=== PATIENT | male | born 1955 | race Caucasian/White ===

== ENCOUNTER 2022-05-06 14:17 | Outpatient (REF) | payer OTHER, SELFPAY ==
[2022-05-06 16:52] LABS: Hematocrit 45.4 % (42.0-52.0); Hemoglobin 15.7 g/dl (14.0-18.0); Mean Corpuscular HGB Conc 34.6 g/dl (31.0-36.0); Mean Corpuscular Hemoglobin 31.7 pg (27.0-33.0); Mean Corpuscular Volume 91.5 fL (80.0-98.0); Mean Platelet Volume 10.5 fL (9.4-12.4); Platelet Count 264 X10*3/uL (160-400); Red Blood Count 4.96 X10*6/uL (4.60-5.80); Red Cell Distribution Width 12.7 % (11.0-16.0); White Blood Count 7.6 X10*3/uL (4.8-10.8)
[2022-05-06 17:07] LABS: Alanine Aminotransferase 35 U/L (0-40); Albumin Level 4.6 g/dL (3.5-5.0); Alkaline Phosphatase 95 U/L (39-117); Anion Gap 15 (12-20); Aspartate Amino Transferase 27 U/L (5-37); Bilirubin Total 1.9 mg/dL (0.0-1.0); Blood Urea Nitrogen 17 mg/dL (9-16); Calcium 9.7 mg/dL (8.4-10.2); Carbon Dioxide 25 mmol/L (22-29); Chloride 106 mmol/L (96-108); Cholesterol 211 mg/dL; Estimated Glomerular Filt Rate > 60; Glucose Random 91 mg/dL (60-115); HDL Cholesterol 51 mg/dL; LDL Cholesterol Calculated 142 mg/dl; Potassium 4.6 mmol/L (3.3-5.1); Sodium 141 mmol/L (135-145); Total Protein 7.5 g/dL (6.5-8.0); Triglycerides 90 mg/dL
[2022-05-06 17:27] LABS: Prostate Specific Antigen 2.61 ng/mL (<0.05-4.0)
[2022-05-09 08:06] LABS: ~HepC Num1 0.13 S/CO (0.00-0.79); ~Hepatitis C Antibody Nonreactive (Nonreactive)
== END 2022-05-06 14:18 | disposition home or self-care (01) ==
LOC: HO.HMGCLDS 14:17
PROVIDERS: PCP Internal Medicine; Visit Provider Internal Medicine
DX: Z00.00 Encounter for general adult medical examination without abnormal findings (principal); R97.20 Elevated prostate specific antigen [PSA]; E78.00 Pure hypercholesterolemia, unspecified; R73.09 Other abnormal glucose; Z12.5 Encounter for screening for malignant neoplasm of prostate
CPT/HCPCS: 36415; 80053; 80061; 84153; 85027; 86803

== ENCOUNTER 2022-08-06 09:40 | Outpatient (REF) | payer OTHER, SELFPAY ==
[2022-08-06 11:29] LABS: Alanine Aminotransferase 51 U/L (0-40); Albumin Level 4.5 g/dL (3.5-5.0); Alkaline Phosphatase 86 U/L (39-117); Anion Gap 14 (12-20); Aspartate Amino Transferase 36 U/L (5-37); Bilirubin Total 1.9 mg/dL (0.0-1.0); Blood Urea Nitrogen 15 mg/dL (9-16); Calcium 9.4 mg/dL (8.4-10.2); Carbon Dioxide 27 mmol/L (22-29); Chloride 104 mmol/L (96-108); Cholesterol 112 mg/dL; Estimated Glomerular Filt Rate > 60; Glucose Random 94 mg/dL (60-115); HDL Cholesterol 47 mg/dL; LDL Cholesterol Calculated 51 mg/dl; Potassium 4.2 mmol/L (3.3-5.1); Sodium 141 mmol/L (135-145); Total Protein 7.2 g/dL (6.5-8.0); Triglycerides 71 mg/dL
== END 2022-08-06 09:41 | disposition home or self-care (01) ==
LOC: HO.HMGCLDS 09:40
PROVIDERS: PCP Internal Medicine; Visit Provider Internal Medicine
DX: E78.00 Pure hypercholesterolemia, unspecified (principal)
CPT/HCPCS: 36415; 80053; 80061; 82550

== ENCOUNTER 2022-08-10 08:09 | Emergency (ER) | payer OTHER, SELFPAY ==
--- NOTE | ~2022-08-10 | XR_ITS ---
EXAMINATION: XR ANKLE, LEFT CLINICAL INFORMATION: Pain and swelling status post fall off of ladder. COMPARISON: None TECHNIQUE: AP, lateral, and mortise views of the left ankle. FINDINGS: There is an acute fracture of the medial malleolus with mild medial displacement of the distal fragment. The lateral malleolus appears intact. The tibiotalar joint space is unremarkable. The tarsal bones are normally aligned. There is a very small retrocalcaneal spur. Mild to moderate surrounding soft tissue swelling. XR/XR ankle LT min 3V IMPRESSION: 1. Acute, mildly displaced medial malleoli fracture with mild to moderate swelling.
--- NOTE | ~2022-08-10 | XR_ITS ---
EXAMINATION: XR FOOT, LEFT CLINICAL INFORMATION: Left foot pain status post fall off of ladder. COMPARISON: None TECHNIQUE: AP, lateral, and oblique views of the left foot. FINDINGS: The bones and soft tissues are normal. No fracture. Alignment is anatomic. Joint spaces are maintained. XR/XR foot LT 2V IMPRESSION: No acute abnormality in the left foot. Please refer to the report from the left ankle radiographs from today for additional findings.
[2022-08-10 08:13] VITALS: BP 129/78; PULSE 68; RESP 16; TEMP 36.8; O2SAT 96; BMI 27.7
--- NOTE | 2022-08-10 08:39 | ED_ITS ---
HPI - Extremity Injury (Lower) General Chief Complaint: Extremity Injury, Lower Stated Complaint: L leg and ankle pain Time Seen by Provider: 08/10/22 08:24 Source: patient Mode of arrival: ambulatory Limitations: no limitations History of Present Illness HPI Narrative: 67 yo male with hx of HLD was on a ladder - about two rungs high fell and landed straight down on left leg. No other injuries no head strike no back pain, pain is isolated to the left ankle and foot MD complaint: ankle injury and foot injury Onset (ago): day(s) (1) Type of Injury: blunt Place: home Severity: moderate Relieving factors: immobilization Exacerbating factors: weight bearing, movement and palpation Context: fall Associated symptoms: swelling and able to partially bear weight Other symptoms: none Related Data Allergies Allergy/AdvReac Type Severity Reaction Status Date / Time No Known Allergies Allergy Verified 08/10/22 08:12 Review of Systems Review of Systems: Constitutional : No Fever, No Chills ENT/Mouth : No Ear Pain, No Hoarseness, No sore throat Eyes: No Eye Pain, No Swelling, No Redness, No Foreign Body Cardiovascular : No Chest Pain, No SOB Respiratory : No Cough, No Dyspnea Gastrointestinal : No Nausea, No Vomiting, No Diarrhea, No abdominal Pain Genitourinary : No Dysuria, No Hematuria Musculoskeletal : positive joint pain, No Myalgias, pos Joint Swelling Skin : No Skin lacerations, No rash Neuro : No Weakness, No Numbness, No Loss of Consciousness, No Dizziness, No Headache PMFSH Past Medical History Attestation statement: The following information was validated with the patient. Medical History (Updated 08/10/22 @ 08:54 by Heather Juan DO) Hyperlipidemia Social History Social History (Updated 08/10/22 @ 08:49 by Heather Juan DO) Patient Tobacco Use Status: Never used Tobacco Advance Directives: No Advance Directives Information Provided: Yes Physical Exam Vital Signs: Vital Signs: Last Vital Signs Temp 98.2 F 08/10/22 08:13 Pulse 68 08/10/22 08:13 Resp 16 08/10/22 08:13 BP 129/78 08/10/22 08:13 Pulse Ox 96 08/10/22 08:13 O2 Del Method 08/10/22 08:13 BMI result Body Mass Index 27.7 Appearance: Alert. Oriented X3. No acute distress. Eyes: Pupils equal, round and reactive to light. ENT: Pharynx normal. Neck: Normal inspection. Neck supple. CVS: Normal heart rate and rhythm. Pulses normal. Respiratory: No respiratory distress. Breath sounds normal. Abdomen: Soft and nontender. Skin: Skin warm and dry. Normal skin color. Normal skin turgor. Extremities: L ankle moderate swelling around both malleoli - pulses and sensation intact, no prox fibula ttp Neuro: Oriented X 3. No motor deficit. No sensory deficit. Course Course Course Narrative: declined medications for home MDM - Extremity Injury (Lower) MDM Narrative Medical decision making narrative: 67 yo male with HLD s/p fall yesterday isolated injury to L ankle/foot at this time will obtain xrays. He is NV intact. no back pain. Dispo per results and xray findings. Suspect strain vs fracture Procedures Orthopedic Splinting/Casting Injury #1: Side: left Lower Extremity Injury Location: ankle Lower Extremity Immobilizer: posterior splint and stirrup splint Other Orthopedic Equipment: crutches Discharge Plan Discharge Clinical Impression: Ankle fracture Qualifiers: Encounter type: initial encounter Fracture type: closed Laterality: left Qualified Code(s): S82.892A - Other fracture of left lower leg, initial encounter for closed fracture Patient Disposition: Home, Self-Care Instructions: Ankle Fracture (ED), Crutch Instructions (ED), Splint Care (ED) Additional Instructions: return to ED for any worsening symptoms or concerns rest elevate FINDINGS: There is an acute fracture of the medial malleolus with mild medial displacement of the distal fragment. The lateral malleolus appears intact. The tibiotalar joint space is unremarkable. The tarsal bones are normally aligned. There is a very small retrocalcaneal spur. Mild to moderate surrounding soft tissue swelling. XR/XR ankle LT min 3V IMPRESSION: ? 1. Acute, mildly displaced medial malleoli fracture with mild to moderate swelling. Referrals: Tien Mahan PA-C [Physician Customer Solutions Coordinator] - 1 week Stand Alone Forms: Work/School Release Interventions: ED Discharge Assessment Last Done: 08/10/22 09:59 Discharge Date/Time: 08/10/22 10:00
== END 2022-08-10 10:00 | disposition home or self-care (01) ==
PROVIDERS: Emergency Provider Emergency Medicine; PCP Internal Medicine
DX: S82.892A Other fracture of left lower leg, initial encounter for closed fracture (principal); W11.XXXA Fall on and from ladder, initial encounter; Y93.9 Activity, unspecified; Y92.9 Unspecified place or not applicable; Y99.9 Unspecified external cause status
CPT/HCPCS: 29515; 73610; 73620; 99282; 99284

== ENCOUNTER 2022-08-16 07:40 | Outpatient (REF) | payer OTHER, SELFPAY ==
--- NOTE | ~2022-08-16 | XR_ITS ---
EXAMINATION: XR ANKLE, LEFT CLINICAL INFORMATION: Fracture medial malleolus. Follow-up. COMPARISON: Radiographs left ankle 08/10/2022 TECHNIQUE: AP, lateral, and mortise views of the left ankle. FINDINGS: There is overlying fiberglass splint. Medial malleoli fracture alignment is similar to the prior exam 08/10/2022. Distal fracture fragment is slightly medially displaced. No acute fracture or dislocation or destructive process. XR/XR ankle LT min 3V IMPRESSION: Medial malleoli fracture without significant change in alignment. Status post fiberglass splint.
== END 2022-08-16 07:41 | disposition home or self-care (01) ==
LOC: HO.HOSX 07:40
PROVIDERS: Visit Provider Physician Assistant
DX: S82.52XA Displaced fracture of medial malleolus of left tibia, initial encounter for closed fracture (principal)
CPT/HCPCS: 29405; 73610

== ENCOUNTER 2022-09-13 | Outpatient (REF) | payer OTHER, SELFPAY ==
--- NOTE | ~2022-09-13 | XR_ITS ---
EXAMINATION: XR ANKLE, LEFT CLINICAL INFORMATION: Fracture COMPARISON: Previous x-ray from July 2022 TECHNIQUE: AP, lateral, and mortise views of the left ankle. FINDINGS: There is a displaced fracture of the medial malleolus. Alignment appears unchanged. Fracture line is still seen. The ankle mortise is normal. There is an ankle joint effusion. There is a small calcaneal spur at the Achilles tendon insertion. XR/XR ankle LT min 3V IMPRESSION: No change in displaced medial malleolar fracture.
== END 2022-09-13 00:01 | disposition home or self-care (01) ==
LOC: HO.HOSX
PROVIDERS: Visit Provider Physician Assistant
DX: S82.52XD Displaced fracture of medial malleolus of left tibia, subsequent encounter for closed fracture with routine healing (principal); W11.XXXD Fall on and from ladder, subsequent encounter
CPT/HCPCS: 29405; 73610

== ENCOUNTER 2022-10-11 | Outpatient (REF) | payer OTHER, SELFPAY ==
--- NOTE | ~2022-10-11 | XR_ITS ---
EXAMINATION: XR ANKLE, LEFT CLINICAL INFORMATION: Pain. COMPARISON: Prior radiographs, most recently 09/13/2022. TECHNIQUE: AP, lateral, and mortise views of the left ankle. FINDINGS: Bony mineralization is normal. There is interim bony union of the previously noted left medial malleolus fracture. The ankle mortise is intact. Boehler's angle is normal. There is no left ankle joint effusion. A tiny posterior calcaneal spur is seen. No focal soft tissue swelling, gas or foreign body is seen. XR/XR ankle LT min 3V IMPRESSION: 1. There is interim healing and bony remodeling of the previously noted left medial malleolus fracture. 2. There is a tiny posterior calcaneal spur
== END 2022-10-11 00:01 | disposition home or self-care (01) ==
LOC: HO.HOSX
PROVIDERS: Visit Provider Physician Assistant
DX: M25.572 Pain in left ankle and joints of left foot (principal)
CPT/HCPCS: 73610

== ENCOUNTER 2022-11-11 | Outpatient (REF) | payer OTHER, SELFPAY ==
--- NOTE | ~2022-11-11 | XR_ITS ---
EXAMINATION: XR ANKLE, LEFT CLINICAL INFORMATION: Pain. COMPARISON: Radiograph of the left ankle 10/11/2022. TECHNIQUE: AP, lateral, and mortise views of the left ankle. FINDINGS: Stable appearance of the medial malleolar fracture with osseous bridging when compared to initial studies from July 2022. Unchanged mild radiolucency of the trabeculations in the posterior tibial malleolus on the lateral view, indeterminate finding. Similar degree of mild multifocal osteoarthritis. Stable small calcifications at the insertion site of the Achilles tendon. Similar degree of diffuse soft tissue swelling. XR/XR ankle LT min 3V IMPRESSION: 1. Stable appearance of the medial malleolar fracture. 2. Unchanged mild radiolucency of the trabeculations in the posterior tibial malleolus on the lateral view, nonspecific finding. Correlate for point tenderness.
== END 2022-11-11 00:01 | disposition home or self-care (01) ==
LOC: HO.HOSX
PROVIDERS: Visit Provider Physician Assistant
DX: M25.572 Pain in left ankle and joints of left foot (principal)
CPT/HCPCS: 73610

== ENCOUNTER 2023-05-08 11:08 | Outpatient (REF) | payer OTHER, SELFPAY ==
[2023-05-08 14:19] LABS: Alanine Aminotransferase 36 U/L (0-40); Albumin Level 4.4 g/dL (3.5-5.0); Alkaline Phosphatase 82 U/L (39-117); Anion Gap 10 (12-20); Aspartate Amino Transferase 27 U/L (5-37); Bilirubin Total 1.9 mg/dL (0.0-1.0); Blood Urea Nitrogen 16 mg/dL (9-16); Calcium 9.6 mg/dL (8.4-10.2); Carbon Dioxide 27 mmol/L (22-29); Chloride 108 mmol/L (96-108); Cholesterol 120 mg/dL; Estimated Glomerular Filt Rate > 60; Glucose Random 87 mg/dL (60-115); HDL Cholesterol 49 mg/dL; LDL Cholesterol Calculated 51 mg/dl; Potassium 4.2 mmol/L (3.3-5.1); Sodium 141 mmol/L (135-145); Total Protein 7.5 g/dL (6.5-8.0); Triglycerides 101 mg/dL
== END 2023-05-08 11:09 | disposition home or self-care (01) ==
LOC: HO.HMGCLDS 11:08
PROVIDERS: PCP Internal Medicine; Visit Provider Nurse Practitioner Adult Health
DX: E78.00 Pure hypercholesterolemia, unspecified (principal)
CPT/HCPCS: 36415; 80053; 80061

== ENCOUNTER 2023-05-27 10:58 | Outpatient (REF) | payer OTHER, SELFPAY | END 2023-05-27 10:59 | disposition home or self-care (01) | LOC: HO.HMGCLDS 10:58 | PROVIDERS: Visit Provider Internal Medicine | DX: N40.0 Benign prostatic hyperplasia without lower urinary tract symptoms (principal); Z12.5 Encounter for screening for malignant neoplasm of prostate | CPT/HCPCS: 36415; 84153 ==

== ENCOUNTER 2024-05-31 10:45 | Outpatient (REF) | payer OTHER, SELFPAY ==
[2024-05-31 13:19] LABS: MANUAL DIFF FLAG NO
[2024-05-31 13:38] LABS: Alanine Aminotransferase 38 U/L (0-40); Albumin Level 4.4 g/dL (3.5-5.0); Alkaline Phosphatase 88 U/L (39-117); Anion Gap 12 (12-20); Aspartate Amino Transferase 30 U/L (5-37); Bilirubin Total 2.3 mg/dL (0.0-1.0); Blood Urea Nitrogen 15 mg/dL (9-16); Calcium 9.5 mg/dL (8.4-10.2); Carbon Dioxide 27 mmol/L (22-29); Chloride 107 mmol/L (96-108); Cholesterol 121 mg/dL (<200); Estimated Glomerular Filt Rate > 60; Glucose Random 107 mg/dL (60-115); HDL Cholesterol 56 mg/dL (>40); LDL Cholesterol Calculated 43 mg/dL (<100); Potassium 3.9 mmol/L (3.3-5.1); Sodium 142 mmol/L (135-145); Total Protein 7.5 g/dL (6.5-8.0); Triglycerides 110 mg/dL (<150)
[2024-05-31 13:45] LABS: Basophils Percent Auto 0.5 % (0-2); Eosinophils Absolute Auto 0.2 X10*3/uL (0.0-0.4); Eosinophils Percent Auto 2.1 % (0-4); Hematocrit 45.2 % (42.0-52.0); Hemoglobin 15.6 g/dl (14.0-18.0); Imm Gran Abs Auto 0.02 X10*3/uL (0.00-0.03); Imm Gran Pct Auto 0.2 % (0.0-0.4); Lymphocytes Absolute Auto 3.2 X10*3/uL (1.2-4.9); Lymphocytes Percent Auto 39.5 % (20-40); Mean Corpuscular HGB Conc 34.5 g/dl (31.0-36.0); Mean Corpuscular Hemoglobin 31.7 pg (27.0-33.0); Mean Corpuscular Volume 91.9 fL (80.0-98.0); Mean Platelet Volume 10.4 fL (9.4-12.4); Monocytes Absolute Auto 0.5 X10*3/uL (0.1-1.2); Monocytes Percent Auto 6.4 % (2-11); Neutrophils Absolute Auto 4.2 x10*3/uL (2.0-8.3); Neutrophils Percent Auto 51.3 % (45-73); Platelet Count 273 X10*3/uL (160-400); Red Blood Count 4.92 X10*6/uL (4.60-5.80); Red Cell Distribution Width 13.3 % (11.0-16.0); White Blood Count 8.2 X10*3/uL (4.8-10.8)
[2024-05-31 13:57] LABS: Prostate Specific Antigen 2.73 ng/mL (<0.05-4.0)
== END 2024-05-31 10:46 | disposition home or self-care (01) ==
LOC: HO.HMGCLDS 10:45
PROVIDERS: PCP Internal Medicine; Visit Provider Internal Medicine
DX: Z00.00 Encounter for general adult medical examination without abnormal findings (principal); N40.0 Benign prostatic hyperplasia without lower urinary tract symptoms; Z12.5 Encounter for screening for malignant neoplasm of prostate
CPT/HCPCS: 36415; 80053; 80061; 84153; 85025

== ENCOUNTER 2024-06-22 09:58 | Outpatient (REF) | payer OTHER, SELFPAY ==
[2024-06-22 11:43] LABS: Anion Gap 13 (12-20); Blood Urea Nitrogen 14 mg/dL (9-16); Calcium 9.6 mg/dL (8.4-10.2); Carbon Dioxide 23 mmol/L (22-29); Chloride 108 mmol/L (96-108); Estimated Glomerular Filt Rate > 60; Glucose Random 94 mg/dL (60-115); Sodium 140 mmol/L (135-145)
== END 2024-06-22 09:59 | disposition home or self-care (01) ==
LOC: HO.HMGCLDS 09:58
PROVIDERS: PCP Internal Medicine; Visit Provider Internal Medicine
DX: I10 Essential (primary) hypertension (principal)
CPT/HCPCS: 36415; 80048

== ENCOUNTER 2025-01-16 12:50 | Outpatient (AMB) | payer OTHER, SELFPAY ==
[2025-01-16 13:05] VITALS: BP 140/76; PULSE 79; O2SAT 96
--- NOTE | 2025-01-16 13:05 | MHC.OFFWIV ---
Intake Vital Signs 01/16/25 13:05 Weight 129 lb BP 140/76 H Blood Pressure Location Lt brachial Position Sitting Pulse 79 Pulse Source Pulse Oximeter Pulse Oximetry (%) 96 Oxygen Delivery Method Room Air Intake Visit Reasons: EP a boil on back area Intake Note: Patient here for a boil that was present for about 1 week and it popped monday. Patient Tobacco Use Status: Never used Tobacco Allergies No Known Allergies Allergy (Verified 01/16/25 13:12) Do you need a note to return to daycare/school/sports/work: No HPI HPI Comments History of Present Illness Details History of Present Illness - The patient is a 69-year-old male presenting with a boil on his back. - The boil ruptured four days ago, releasing fluid, and has since hardened with no further drainage or pain. - The size of the boil is approximately 2 cm x 1 cm, and the patient recalled a previous similar condition with surgical intervention. - Denies any history of MRSA infections. Physical Exam General: Cooperative, healthy appearing, comfortable, no acute distress and well developed Orientation: Patient oriented x3 Limitations: No limitations Head: Normal to inspection Ears: Hearing grossly normal bilaterally Nose: Normal external nose present Face and sinus: Normal facial exam Eyes: Appearance normal, both eyes and all related structures Neck: Normal visual inspection and Yes full ROM Respiratory: Normal respiratory effort and able to speak in complete sentences. Clear to auscultation bilaterally Cardiovascular: Regular rate and rhythm. Normal S1 and S2 Skin: No rashes or lesions noted, mid-low center of back indurated area, crusted center with surrounding erythema 2 cm x 1 cm, with erythema, no warmth noted. 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 This course should mitigate the infection, but if the boil does not resolve, further evaluation and possibly a second antibiotic may be required. However, he has no MRSA history so I will not RX it today. The prescription is sent to [facility]. Follow-up with primary care provider Dr. Hayden is advised if the condition requires further dermatological evaluation. Patient was informed and verbally consented to the use of an ambient scribe for clinic note documentation during this visit. Medications: New cephalexin 500 mg PO Q6H 28 caps 0RF Coding Level of Care Code New Pt Level 3 (90258) Diagnoses Abscess of lower back L02.212
== END 2025-01-16 13:44 | disposition home or self-care (01) ==
PROVIDERS: PCP Internal Medicine; Visit Provider Physician Assistant
DX: L02.212 Cutaneous abscess of back [any part, except buttock and flank] (principal)

== ENCOUNTER → 2025-01-16 12:50 | Outpatient (BNVA) | payer OTHER, SELFPAY | PROVIDERS: PCP Internal Medicine ==

== ENCOUNTER 2025-02-24 09:14 | Outpatient (AMB) | payer OTHER, SELFPAY ==
--- NOTE | 2025-02-24 09:17 | MHC.OFFVIS ---
Intake Visit Reasons: Boil on back Intake Note: Patient referred after [facility] visit on 01-16-2025 for abscess on back. Was treated w/ Cephalexin 500mg course. Patient c/o: reports improvement. No longer keeping it covered with bandaid. 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 He had a patient was cyst of the mid back which was symptomatic, enlarging, red, and painful. It has spontaneously drained a few days ago. He presents here for further follow-up. He has never had such she was before. 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 No evidence of abscess. Assessment & Plan Assessment & Plan (1) Infected sebaceous cyst: Code(s): L72.3 - Sebaceous cyst; L08.9 - Local infection of the skin and subcutaneous tissue, unspecified Category: Surgical Plan At present, patient was treated conservatively. He is encouraged to put warm compresses. He had been given a script for antibiotics. He will see me as directed or p.r.n.. All questions answered. Coding Level of Care Code New Pt Level 4 (58949) Diagnoses Infected sebaceous cyst L72.3; L08.9
== END 2025-02-24 09:33 | disposition home or self-care (01) ==
LOC: HO.HGS 09:14
PROVIDERS: PCP Internal Medicine; Referring Provider Family Medicine; Visit Provider Surgery
DX: L72.3 Sebaceous cyst (principal); L08.9 Local infection of the skin and subcutaneous tissue, unspecified
CPT/HCPCS: 99204

== ENCOUNTER 2025-03-10 09:00 | Outpatient (AMB) | payer OTHER, SELFPAY ==
--- NOTE | 2025-03-10 09:03 | MHC.OFFVIS ---
Vital Signs 03/10/25 09:08 Weight 158 lb BP 186/81 H Blood Pressure Location Rt brachial Position Sitting Pulse 60 Intake Visit Reasons: 2wk abscess~ back Intake Note: Patient here for follow up cyst on back. Completed Cephalexin course. Patient c/o: no concerns. Dimmer Board Operator Required: No Accompanied by: Self / Same As Patient Allergies No Known Allergies Allergy (Verified 03/10/25 09:08) Medication List - Last Reconciled 03/10/25 by Julito Gallego MD amlodipine-benazepril 5-10 mg caps PO DAILY atorvastatin 40 mg PO DAILY HPI Comments Details: Patient presents 1. For follow-up regarding his left lower back infected sebaceous cyst 2. Right cheek lesion. Back abscess wound is healing uneventfully the patient thinks. Minimal symptoms from it. Patient was had this cheek lesion for an uncertain amount of time. His increasing in size and become more symptomatic. 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 Back/Spine/Pelvis Other: Patient has near told healing/resolution of his left lower back infected sebaceous cyst wound. Office Procedures Excision Details: Risks, benefits, alternatives of excision of right face wart were reviewed with the patient and included but not limited to bleeding, infection, recurrence, numbness, pain, scarring the patient wished to proceed. All questions answered. Patient underwent 1% lidocaine, and Betadine prep after appropriate positioning and uneventful tangential excision of right mid face garcia. Specimen sent to pathology. Wound base cauterized with silver nitrate followed by bacitracin and a sterile dressing. Patient tolerated procedure well. 00911-Wwupgnyv face/ear/eyelid/nose/lip/mucous membrane 0.6cm-1cm Procedure code (CPT) selection complete Office Meds lidocaine 1 %-epinephrine 1:100,000 injection solution Performing Provider: Julito Gallego MD Performing Location: [facility] Surgeons Administered by: Julito Gallego MD on 03/10/25 09:30 Dose Route Admin Location Dispensed Lot Number Expiration Date ND Radar Air Traffic Controller 10 mL Infiltration 10 mL Assessment & Plan Assessment & Plan (1) Wart of face: Code(s): B07.9 - Viral wart, unspecified Category: Surgical Plan: 1. Lower back sebaceous cyst as completely healed and requires no further intervention. 2. Patient was been given local instructions including bacitracin to the area once a day was sterile dressing and Tylenol or Motrin for pain, ice periodically and patient was see me as directed or p.r.n.. He was explained that he will develop eschar/eschar over the lesion base and this will eventually slough off with new skin replaces it. Orders: Orders Surgical Today L98.9 - Disorder of the skin and subcutaneous tissue, unspecified AMB Excision Today B07.9 - Viral wart, unspecified Medications: New lidocaine-epinephrine 1 %-1:100,000 10 mL Infiltration ONCE 30 mL 0RF B07.9 - Viral wart, unspecified Coding Level of Care Code Est Pt Level 5 (73928) Diagnoses Wart of face B07.9 CPT Codes Face/Ear/Eyelid/Nose/Lip/Mucous Membrane - CPT: 57605-Aoxouqit face/ear/eyelid/nose/lip/mucous membrane 0.6cm-1cm ([id number])
[2025-03-10 09:08] VITALS: BP 186/81; PULSE 60
== END 2025-03-10 09:23 | disposition home or self-care (01) ==
LOC: HO.HGS 09:01
PROVIDERS: PCP Internal Medicine; Visit Provider Surgery
DX: L72.3 Sebaceous cyst (principal); L57.0 Actinic keratosis
CPT/HCPCS: 11441; 99214

== ENCOUNTER 2025-03-10 09:00 | Outpatient (REF) | payer OTHER, SELFPAY | END 2025-03-10 09:01 | disposition home or self-care (01) | LOC: HO.LNP 09:00 | PROVIDERS: PCP Internal Medicine; Visit Provider Surgery | DX: L57.0 Actinic keratosis (principal); L98.9 Disorder of the skin and subcutaneous tissue, unspecified | CPT/HCPCS: 11441; 88304; 88305; J2004 ==

== ENCOUNTER 2025-03-24 09:52 | Outpatient (AMB) | payer OTHER, SELFPAY ==
--- NOTE | 2025-03-24 09:56 | A.OFFVIS_ITS ---
Vital Signs 03/24/25 10:00 Weight 160 lb BP 136/63 Blood Pressure Location Rt brachial Position Sitting Pulse 77 Intake Visit Reasons: 2wk excision abscess on back Intake Note: Patient here s/p excision on Rt cheek on 03-10-2025. Reports site healing well. Of note abscess on back is 95% improved w/ Cephalexin course. Patient c/o: no concerns. Accompanied by: Self / Same As Patient Allergies No Known Allergies Allergy (Verified 03/24/25 10:00) HPI Comments Details: Underwent excision of verrucous actinic keratosis of right cheek on 03/10/25 in the office under local anesthesia by Dr. Gallego. He reports no problems following. Denies redness, drainage, pain at the site. Also had been seen for infected sebaceous cyst of lower back, treated with keflex. Thinks this has healed well. Denies pain or drainage from the site. 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 Review of Systems Const Denies chills and Denies fever(s) Skin/Breast Denies rash Physical Exam Vital Signs: Last Vital Signs Pulse 77 03/24/25 10:00 BP 136/63 03/24/25 10:00 Const General: comfortable, no acute distress and alert Resp Effort & Inspection: normal respiratory effort Back/Spine/Pelvis Other: mid back with small area of very mild residual nonblanching erythema, area non tender, no drainage Skin Other: right cheek well healed and clean appearing, no surrounding erythema, no drainage Results Reviewed Results Reviewed: Skin, right cheek, excision: Verrucous hypertrophic actinic keratosis; extending focally to deep margin. Assessment & Plan Assessment & Plan (1) Wart of face: Code(s): B07.9 - Viral wart, unspecified Category: Surgical Plan Doing well following excision of verrucous actinic keratosis of right cheek. Site is well healed without evidence of infection. No further concerns. Can follow up as needed. Coding Level of Care Code Est Pt Level 3 (87458) Diagnoses Wart of face B07.9
[2025-03-24 10:00] VITALS: BP 136/63; PULSE 77
== END 2025-03-24 10:43 | disposition home or self-care (01) ==
LOC: HO.HGS 09:52
PROVIDERS: PCP Internal Medicine; Visit Provider Physician Assistant Surgical
DX: L57.0 Actinic keratosis (principal)
CPT/HCPCS: 99213

== ENCOUNTER 2025-06-02 08:46 | Outpatient (REF) | payer OTHER, SELFPAY ==
--- OUTSIDE RECORDS SUMMARY | 2025-06-02 08:59 | XMS_ITS | Patient Health Record ---
Author Organization [facility] Address [address] [place] [address] Care Team Providers Care Hedis Manager Name Role Phone Jackelyn HAYNES, Brayan Primary Care Provider Jalil Shelby Unavailable [phone] Reason For Referral No Information Medications Medication SIG (Take, Route, Fr equency, Duration) Notes Start Date End Date Status Suprep Bowel Prep 1 kit as directed Oral ly as directed for 1 dose 08/27/2015 Active Aspir-81 81 MG 1 tablet Orally Once a day Active Multi Vitamin/Minerals Orally Active Problems Problem Type SNOMED Code ICD Code Onset Dates Problem Status W/U Status Risk Notes Problem Pre-surgery evaluation (292632788) Other specified pre-operative examination (V72.83) Active confirmed Problem Already on aspirin (848580876) Long-term (current) use of aspirin (V58.66) Active confirmed Problem Colon cancer screening (V76.51) Active confirmed Plan Of Treatment Future Test Test Name Order Date COLONOSCOPY 08/26/2015 Insurance Providers Payer Name Payer Address Payer Phone Subscriber Number Group Number Insured Name Patient Relationship to Insured Coverage Start Date Coverage End Date [facility] [address] [place] [phone] [id number] ELYSSA MOORE Self - patient is the insured Medical (General) History Medical History History ICD Code Screening Colonoscopy 2004--- negative except for diverticulosis and internal hemorrhoids Denies PR,DM,CVA,Lung disease,renal dise ase Surgical History Surgery Date(Month/Year) tonsillectomy
[2025-06-02 10:56] LABS: Hematocrit 42.1 % (42.0-52.0); Hemoglobin 14.6 g/dl (14.0-18.0); Mean Corpuscular HGB Conc 34.7 g/dl (31.0-36.0); Mean Corpuscular Hemoglobin 31.2 pg (27.0-33.0); Mean Corpuscular Volume 90.0 fL (80.0-98.0); NRBC Abs Auto 0.000 X10*3/uL (0.0-0.012); NRBC Pct Auto 0.0 /100WBC (0.0-0.2); Platelet Count 248 X10*3/uL (160-400); Red Blood Count 4.68 X10*6/uL (4.60-5.80); White Blood Count 6.6 X10*3/uL (4.8-10.8)
[2025-06-02 12:03] LABS: Alanine Aminotransferase 36 U/L (0-40); Albumin Level 4.5 g/dL (3.5-5.0); Alkaline Phosphatase 74 U/L (39-117); Anion Gap 12 (12-20); Aspartate Amino Transferase 39 U/L (5-37); Blood Urea Nitrogen 16 mg/dL (9-16); Calcium 9.0 mg/dL (8.4-10.2); Carbon Dioxide 24 mmol/L (22-29); Chloride 108 mmol/L (96-108); Cholesterol 117 mg/dL (<200); Estimated Glomerular Filt Rate > 60; HDL Cholesterol 50 mg/dL (>40); Potassium 3.9 mmol/L (3.3-5.1); Sodium 140 mmol/L (135-145); Total Protein 7.2 g/dL (6.5-8.0); Triglycerides 71 mg/dL (<150)
[2025-06-02 12:50] LABS: Prostate Specific Antigen 4.07 ng/mL (<0.05-4.0)
== END 2025-06-02 08:47 | disposition home or self-care (01) ==
LOC: HO.HMGCLDS 08:46
PROVIDERS: PCP Internal Medicine; Visit Provider Internal Medicine
DX: Z00.00 Encounter for general adult medical examination without abnormal findings (principal); I10 Essential (primary) hypertension; E78.00 Pure hypercholesterolemia, unspecified; N40.0 Benign prostatic hyperplasia without lower urinary tract symptoms; Z12.5 Encounter for screening for malignant neoplasm of prostate
CPT/HCPCS: 36415; 80053; 80061; 84153; 85027

== ENCOUNTER 2025-06-20 10:06 | Outpatient (REF) | payer OTHER, SELFPAY ==
--- OUTSIDE RECORDS SUMMARY | 2025-06-20 10:26 | XMS_ITS | Patient Health Record ---
Author Organization [facility] Address [address] [place] [address] Care Team Providers Care Lime Vat Tender Name Role Phone Jackelyn HAYNES, Brayan Primary Care Provider Jalil Shelby Unavailable [phone] Reason For Referral No Information Medications Medication [...] W/U Status Risk Notes Problem Pre-surgery evaluation (383388493) Other specified pre-operative examination (V72.83) Active confirmed Problem Already on aspirin (017893539) Long-term (current) use of aspirin (V58.66) Active confirmed Problem Colon cancer screening (014714787) Colon cancer screening (V76.51) Active confirmed Plan Of Treatment Future Test Test Name Order Date COLONOSCOPY 08/26/2015 Insurance Providers Payer Name Payer Address Payer Phone Subscriber Number Group Number Insured Name Patient Relationship to Insured Coverage Start Date Coverage End Date [facility] [address] [place] [phone] [id number] ELYSSA MOORE Self - patient is the insured Medical (General) History Medical History History ICD Code Screening Colonoscopy 2004--- negative except for diverticulosis and internal hemorrhoids Denies ID,DM,CVA,Lung disease,renal dise ase Surgical History Surgery Date(Month/Year) tonsillectomy
[2025-06-20 13:37] LABS: Prostate Specific Antigen 3.03 ng/mL (<0.05-4.0)
== END 2025-06-20 10:07 | disposition home or self-care (01) ==
LOC: HO.HMGCLDS 10:06
PROVIDERS: PCP Internal Medicine; Visit Provider Internal Medicine
DX: R97.20 Elevated prostate specific antigen [PSA] (principal); Z12.5 Encounter for screening for malignant neoplasm of prostate
CPT/HCPCS: 36415; 84153